=== PATIENT | female | born 1990 | race Caucasian/White ===

== ENCOUNTER 2016-09-27 11:39 | Emergency (ER) | payer OTHER ==
--- NOTE | 2016-10-05 17:46 | ER ---
ADMIT: 09/27/2016 RM/LOC: ER [facility] MR#: [id number] [facility] [address] [place] [id number] SAMMIE BOYCE [address] [place] [address] Emergency Room Report SEX: F AGE: 26 : 1990 DATE: 09/27/2016 ADDENDUM: This patient comes into the ER because she is having abdominal pain all day today. She has a history of having chronic abdominal pain. She has polycystic kidney disease. She states she has had blood in her urine, no vomiting, is very nauseated. On physical exam, this is an alert, 26-year-old, thin female. Vital signs are stable. CBC and CMP were normal. Ultrasound of her kidneys showed no acute disease, just the normal polycystic kidney disease. No signs of abscess. The patient was given an IV normal saline in the ER with tramadol. She has frequent visits to the ER. No primary care in the area. She currently has an appointment with Dr. Walsh she says in a couple of weeks. I wrote a prescription for 12 tramadol, and we will have her keep her appointment. Please see my T-sheet. JIMMIE Pina / Feliciano Spencer MD / modl JOB #: [id number] CC: Filippo Rand MD, Attending Physician Tae Munoz MD, Family Physician
== END 2016-09-27 15:10 | disposition home or self-care (01) ==
LOC: ER 11:39
DX: R10.9 Unspecified abdominal pain (principal); G89.29 Other chronic pain; Q61.3 Polycystic kidney, unspecified; G40.909 Epilepsy, unspecified, not intractable, without status epilepticus; Z79.899 Other long term (current) drug therapy